=== PATIENT | female | born 2000 | race Hispanic/Latino ===

== ENCOUNTER 2023-12-13 19:10 | Emergency (ER) | payer OTHER, MEDICAID, SELFPAY ==
[2023-12-13] VITALS (14 sets, daily range): BP systolic 122–140; BP diastolic 74–98; PULSE 68–82; RESP 18–20; TEMP 36.6; O2SAT 95–100; BMI 49.5
--- NOTE | 2023-12-13 20:07 | PC.NURSE ---
Addendum entered by Tamara Aguilar R.N. 12/13/23 20:11: Pt also concerned about right eye pain, redness, puffiness, and discharge (white, yellow) Original Note: Pt states that she had surgery in [place] January 2023. However, 10 days ago she started to have pain in lumbar area where she had anesthesia placement. Right hip pain radiates to toes. Any movement is painful. Pain in mid-lower abdomen.
[2023-12-13 20:15] LABS: Bacteria Urine Many (>30); RBC Urine 10-30/HPF (0-5/HPF); Squamous Epithelial Cell Urine 10-30 /HPF (0-5/HPF); Urine Volume 10mL (spun); WBC Urine 5-10/HPF (0-5/HPF)
[2023-12-13 20:16] LABS: Culture Indicated Urine Specimen Cultured
--- NOTE | 2023-12-13 21:03 | ED.BACK ---
HPI - Back Pain/Injury General Chief Complaint: Back Pain/Injury Stated Complaint: infection r eye, leg pain/back pain Time Seen by Provider: 12/13/23 19:40 Source: patient Mode of arrival: Ambulatory Limitations: language barrier History of Present Illness HPI Narrative: Patient is a 23-year-old female. Is [place]-speaking only. [place] language line sales management intern was used for the vent. She was here for several reasons. She is here because she has right eye irritation. Does not wear glasses or contacts. States that the irritation has been somewhat worsening over the past 24-36 hours. No foreign body sensation. It is itching and watering. She was also here because of pain in her right hip and her right leg. Approximately 1 year ago she sustained an injury where she fractured her femur. She had a ORIF. I do not have the records to evaluate. This was done in [place]. She states that since the event she has had continued discomfort in her right leg in her right hip. This seems to be worsening as time goes on. She has not had follow-up for this. Does not take any medications for it. No new injuries. She was also here because she occasionally has bilateral breast discomfort. No nipple discharge. No changes in the skin. Describes the pain is deep inside. This has been going on for several weeks. Related Data Previous Rx's Medication Instructions Recorded erythromycin 5 mg/gram (0.5 %) eye 0.5 inch EYE-RIGHT TID 2 days #3.5 12/13/23 ointment grams tramadol 50 mg tablet 50 mg PO Q8H PRN pain #10 tabs 12/13/23 Allergies Allergy/AdvReac Type Severity Reaction Status Date / Time No Known Drug Allergies Allergy Verified 12/13/23 19:51 Review of Systems Review of Systems ROS Unobtainable: All systems reviewed & are unremarkable except as noted in HPI and below Patient History Social History Smoking Status: Never smoker Smoking Status: Never smoker alcohol intake frequency: 0-2 drinks per day Substance Use Type: does not use Exam Initial Vital Signs Initial Vital Signs: Vital Signs Temperature 97.8 F 12/13/23 19:37 Pulse Rate 68 12/13/23 19:37 Respiratory Rate 20 12/13/23 19:37 Blood Pressure 131/98 H 12/13/23 19:37 Pulse Oximetry 95 12/13/23 19:37 Oxygen Delivery Method Room Air 12/13/23 19:37 Const General: cooperative, comfortable and No ill appearing HENMT Head: normal to inspection and normocephalic Eyes Other: Right eye has conjunctival injection. Has clear discharge. Pupils equal and round and reactive. Extraocular movements intact. No foreign body noted. Chest Other: With terrazzo supervisor at bedside breasts are unremarkable. No lumps or bumps. No skin changes. Skin General: no rashes or lesions noted Extrem Other: No gross deformities to the right hip for the right femur. Does have discomfort with palpation. Patient is ambulatory. Course Orders Ordered: ED Orders 12/13/23 19:58 Urine Culture Stat Urine Microscopic Stat 12/13/23 21:04 XR femur RT min 2V Stat Discontinued Medications Erythromycin (Erythromycin Ophth 1 Gm Oint) 1 applic EYE-RIGHT NOW ONE Stop: 12/13/23 22:48 Last Admin: 12/13/23 23:08 Dose: 1 applic Documented By: AB Tramadol HCl (Tramadol 50 Mg Prepack) 1 bottle MISC DIRECTED ONE Stop: 12/13/23 23:06 Last Admin: 12/13/23 23:09 Dose: 1 bottle Documented By: AB Vital Signs Vital signs: Vital Signs - 8 hr 12/13/23 19:37 12/13/23 19:47 12/13/23 19:51 Temperature 97.8 F Pulse Rate 68 81 Respiratory Rate 20 Blood Pressure 131/98 H 137/78 Pulse Oximetry 95 99 Oxygen Delivery Method Room Air Room Air 12/13/23 19:51 12/13/23 20:00 12/13/23 20:00 Temperature Pulse Rate 77 81 Respiratory Rate Blood Pressure 136/75 Pulse Oximetry 98 96 Oxygen Delivery Method Room Air Room Air 12/13/23 20:30 12/13/23 21:00 12/13/23 21:35 Temperature Pulse Rate 72 82 76 Respiratory Rate 18 Blood Pressure Pulse Oximetry 97 99 97 Oxygen Delivery Method Room Air Room Air 12/13/23 21:35 12/13/23 22:00 12/13/23 22:00 Temperature Pulse Rate 81 Respiratory Rate Blood Pressure 122/74 129/82 Pulse Oximetry 98 Oxygen Delivery Method Room Air 12/13/23 22:02 12/13/23 22:38 12/13/23 22:49 Temperature Pulse Rate 80 81 80 Respiratory Rate 18 Blood Pressure Pulse Oximetry 99 100 100 Oxygen Delivery Method Room Air Room Air 12/13/23 22:58 12/13/23 22:59 12/13/23 22:59 Temperature Pulse Rate 78 79 Respiratory Rate Blood Pressure 140/86 Pulse Oximetry 99 99 Oxygen Delivery Method 12/13/23 23:00 Temperature Pulse Rate 79 Respiratory Rate Blood Pressure Pulse Oximetry 99 Oxygen Delivery Method MDM - Back Pain/Injury Lab Data Attestation: I reviewed the patient's lab results. Labs: Lab Results 12/13/23 Range/Units 19:58 Urine RBC 10-30/hpf H (0-5/HPF) Urine WBC 5-10/hpf H (0-5/HPF) Ur Squamous Epith Cells 10-30 /hpf H (0-5/HPF) Urine Bacteria Many (>30) H (None) Ur Culture Indicated? Specimen cultured Vol Urine Centrifuged 10ml (spun) Point of Care Testing Test Results Negative Urine Dip Bedside Urine Glucose Negative Bedside Urine Bilirubin - Negative Bedside Urine Ketone - Negative Urine Specific Andreas 1.030 Bedside Urine Occult Blood +++ Bedside Urine pH 6.0 Bedside Urine Protein +/- 15 Bedside Urine Urobilinogen - Negative Bedside Urine Nitrite - Negative Bedside Urine Leukocytes +/- 15 Esterase Imaging Data Extremity x-ray #1: Radiologist's Impression: PROCEDURE: XR FEMUR RT MIN 2V INDICATIONS: pain S/P ORIF TECHNIQUE: 2 views of the femur were acquired. COMPARISON: None. FINDINGS: Bones: Probable chronic appearing midshaft right femur fracture with mild medial callus formation but persistent transverse lucency. There is a femoral intramedullary sony with transverse proximal and distal screws. Along the medial aspect of the femoral sony in the distal femoral metaphysis, there is up to 2.5 mm of lucency. There may be distal extension of the sony into the intracondylar notch. There are two femoral neck pins which appear intact and in appropriate position. Hip and knee joints appear congruent. Soft tissues: No suspicious soft tissue calcifications or masses. IMPRESSION: Prior midshaft femoral fracture with fixation and incomplete healing. No hardware fracture. There is some periprosthetic lucency along the sony in the distal metaphysis. Given lack of prior comparisons, change in the extent of this periprosthetic lucency cannot be evaluated. MDM Narrative Medical decision making narrative: Patient does have conjunctival of her right eye. Does have a clear discharge. It is unilateral. Because of this will place her on erythromycin ointment. She was given some here in the emergency department a prescription was sent to the pharmacy of her choice. X-ray of her right femur does show the intramedullary sony in place. I have no old ones to compare to. There is still some lucency. Unsure as to whether or not things are actually improving or have stopped healing. I did advise she follow-up with orthopedics. She was given contact information. No emergent orthopedic consultation needed. Patient's breast exam is unremarkable. Advised that she make contact with the primary care doctor for follow-up this. She was given phone numbers that she can call to help with this. Was sent home with symptom treatment for now of her right femur. Patient expressed understanding and agreement with plan. Discharge Plan Departure Patient Disposition: Home Clinical Impression: Conjunctivitis, Leg pain Instructions: Conjunctivitis, DI for Leg Pain Activity Restrictions/Additional Instructions: You can contact [phone] to establish a primary care doctor. You can also contact the Orthopedic Department of the number provided below for follow-up for your right leg pain. Take the medications as directed. Return to the emergency department for new symptoms. Puede comunicarse al [phone] para establecer un m?dico de atenci?n primaria. Tambi?n puede comunicarse con el Departamento de [facility] al n?tanya que se proporciona a continuaci?n para realizar un seguimiento de granados dolor en la [facility]. [place] los medicamentos seg?n las indicaciones. Regrese al departamento de emergencias si presenta nuevos s?ntomas. Prescriptions: New erythromycin 5 mg/gram (0.5 %) ointment 0.5 inch EYE-RIGHT TID 2 Days Qty: 3.5 0RF tramadol 50 mg tablet 50 mg PO Q8H PRN (Reason: pain) Qty: 10 0RF Referrals: Anat Villalobos MD [Physician] - Stand Alone Forms: Patient Portal/API
[2023-12-13] MEDS: ERYTHROMYCIN OPHTH 1 GM OINT 1 APPLIC EYE-RIGHT (23:08)
[2023-12-13] MEDS: TRAMADOL 50 MG PREPACK 1 BOTTLE MISC (23:09)
== END 2023-12-13 23:14 | disposition home or self-care (01) ==
PROVIDERS: Emergency Provider Emergency Medicine
DX: M79.604 Pain in right leg (principal); H10.9 Unspecified conjunctivitis; Z98.890 Other specified postprocedural states
CPT/HCPCS: 73552; 81003; 81015; 81025; 87086; 99283